=== PATIENT | male | born 1990 | race Caucasian/White ===

== ENCOUNTER 2017-12-08 14:50 | Emergency (ER) | payer OTHER, SELFPAY ==
[2017-12-08 14:52] VITALS: BP 164/94; PULSE 79; RESP 20; TEMP 36.7; O2SAT 97; BMI 47.1
--- NOTE | 2017-12-08 15:12 | ED.DCSUM_ITS ---
- ER Visit Summary Date of Service: 12/08/17 Chief Complaint: Back pain History of Present Illness: The patient is a 27 M presents to the emergency department with sudden onset back pain. 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 He states that once a year, he will get a flare up of pain. He states that he was at work bent over. He states he stood up, and felt something pop in his low back. He describing pain that is burning across his low back. It does not radiate down his legs. He denies any weakness , numbness, tingling. He said no problems of bowel or bladder. He states it was sudden onset. He denies any fevers or chills. He has no history of IV drug abuse. He is still able to ambulate. He has not taken anything for his pain. Physical Examination: Afebrile, vitals unremarkable. Well-appearing male no acute distress. Head is normocephalic, atraumatic. Pupil's equal round reactive, extraocular muscles intact. Neck supple. Heart regular rate and rhythm. Lungs clear, chest nontender. Abdomen soft, nontender, nondistended. No pulsatile mass. Patient has paraspinal tenderness in the lumbar area, but no bony tenderness. Straight leg raise is negative bilaterally. 2+ symmetric lower extremity pulses. 2+ reflexes. No clonus. No weakness of dorsiflexion, plantar flexion, or extensor hallucis longus bilaterally. Test Results: [] Emergency Department Course and Treatment: The patient has no red flag symptoms. He has normal pulses and reflexes of his lower extremities. He does have some bilateral paraspinal tenderness. I did obtain plain films which are unremarkable. The patient is able to ambulate. I will treat him as if this is musculoskeletal. He will be given anti-inflammatories and antispasmodics. He will also be referred to primary care as he does not have one. The patient is comfortable with this plan of care will be discharged home. Treatment Plan: [] Disposition: Discharge Impression: Acute lumbosacral strain This note was generated with Ovuline dictation software. It may contain incorrect words, spelling, and punctuation that were not noted in review of the chart prior to signing ED Disposition - Plan for ED Patient: Chief Complaint: Back Instructions: ED Low Back Pain Injury Prescriptions: Naproxen [Naprosyn] 500 mg PO BID PRN #20 tab Cyclobenzaprine [Flexeril] 10 mg PO TID PRN #20 tab PRN Reason: Muscle Spasm Referrals: Yoseph Khan MD [STAFF PHYSICIAN] -
[2017-12-08] MEDS: HYDROcodone Bitartrate/Apap 5/325 Tablet PO (16:07)
[2017-12-08 16:08] VITALS: BP 130/69; PULSE 77; RESP 18; O2SAT 98
== END 2017-12-08 16:09 | disposition home or self-care (01) ==
LOC: ED 15:44
PROVIDERS: Emergency Provider Emergency Medicine; Family Provider Family Medicine
DX: S39.012A Strain of muscle, fascia and tendon of lower back, initial encounter (principal); X50.1XXA Overexertion from prolonged static or awkward postures, initial encounter; Y93.9 Activity, unspecified; Y92.89 Other specified places as the place of occurrence of the external cause; Y99.0 Civilian activity done for income or pay
CPT/HCPCS: 72100; 99283

== ENCOUNTER 2018-03-12 21:24 | Emergency (ER) | payer SELFPAY ==
[2018-03-12 21:26] VITALS: BP 166/119; PULSE 93; RESP 18; TEMP 36.2; O2SAT 99; BMI 47.9
--- NOTE | 2018-03-12 21:44 | ED.VISSUMM ---
- ER Visit Summary Date of Service: 03/12/18 Chief Complaint: Left knee pain History of Present Illness: The patient is a 28 M who states he was running across a parking lot at work today. His left knee twisted and gave out. The patient nearly fell. He can complains of continued pain to the medial portion of his left knee. He has been able to walk with antalgic gait. Physical Examination: Blood pressure is 166/119, otherwise vitals normal. Patient is sitting upright in bed no acute distress. Head neck examination normal. Heart is regular rate and rhythm. Lung sounds clear. Lower extremity examination reveals mild tenderness along the medial joint line of the left knee. He has full range of motion with good strength and sensation. Ligaments are tight on testing. He has strong distal pulses with no evidence of effusion. Test Results: Left knee x-rays are unremarkable. Emergency Department Course and Treatment: Test results are discussed with the patient. I did advise him that we cannot evaluate the ligaments, tendons, cartilage, or meniscus with the x-rays. He voices understanding. He will be given an Kenrick wrap and a prescription for naproxen. He will be referred to orthopedics if not improving. Treatment Plan: [] Disposition: Discharge Impression: Left knee sprain This note was generated with Maclear dictation software. It may contain incorrect words, spelling, and punctuation that were not noted in review of the chart prior to signing ED Disposition - Plan for ED Patient: Chief Complaint: Lower Extremity Injury Referrals: [facility] Doctor,Out of [Primary Care Provider] -
--- NOTE | 2018-03-12 21:57 | RAD_ITS ---
STUDY: X-RAY - LEFT KNEE REASON FOR EXAM: Male, 28 years old. Pain TECHNIQUE: 4 view(s) of the knee. COMPARISON: None. FINDINGS: Normal visualized distal femur. Normal visualized proximal tibia and fibula. Normal proximal tibiofibular articulation. Normal medial femorotibial compartment. Normal lateral femorotibial compartment. Normal patellofemoral articulation. The soft tissue structures are unremarkable. RAD/Knee 4 or More Views IMPRESSION: Normal x-ray examination of the knee. Electronically Signed: Ortega Bowen DO at 22:43 EST Tel [phone], Service support ,
--- NOTE | 2018-03-12 22:53 | ED.DEP ---
ED Disposition - Plan for ED Patient: Disposition: Home or Assisted Living Chief Complaint: Lower Extremity Injury Instructions: ED Sprain Knee Prescriptions: Naproxen [Naprosyn] 500 mg PO BID PRN PRN #20 tablet PRN Reason: Pain Referrals: Finn Morin MD [STAFF PHYSICIAN] - 10-14 Days if not better
[2018-03-12] MEDS: Naproxen 500 MG Tablet PO (23:18)
[2018-03-12 23:19] VITALS: BP 166/95; PULSE 81; RESP 17; O2SAT 98
--- OUTSIDE RECORDS SUMMARY | 2018-04-24 17:32 | XMS RPT_ITS ---
:1990 Author Organization [facility] Care Team Providers Name Role Phone All Armas Attending Unavailable Shaw Padron Primary Care Unavailable Shaw Padron Primary Care Unavailable Oumou Turner Attending Unavailable PROBLEMS PROBLEMS No Problem Records FoundPROCEDURES PROCEDURES No Procedure Records FoundRESULTS RESULTS EMERGENCY DEPARTMENT Observed: 03/13/2018 Status: F Source: [place] 12:27 AM [facility] [place] [facility] Medical Records Department [address] [place] [address] Emergency Department Summary 03/12/18 2144 MR#: [id number] Acct: [id number] Name: ZAN BROWER Rep #: [id number] : 1990 28 From: Oumou Turner MD PCP: OUT OF TOWN DOCTOR Status: DEP ER - ER Visit Summary Date of Service: 03/12/18 Chief Complaint: Left knee pain History of Present Illness: The patient is a 28 M who states he was running across a parking lot at work today. His left knee twisted and gave out. The patient nearly fell. He can complains of continued pain to the medial portion of his left knee. He has been able to walk with antalgic gait. Physical Examination: Blood pressure is 166/119, otherwise vitals normal. Patient is sitting upright in bed no acute distress. Head neck examination normal. Heart is regular rate and rhythm. Lung sounds clear. Lower extremity examination reveals mild tenderness along the medial joint line of the left knee. He has full range of motion with good strength and sensation. Ligaments are tight on testing. He has strong distal pulses with no evidence of effusion. Test Results: Left knee x-rays are unremarkable. Emergency Department Course and Treatment: Test results are discussed with the patient. I did advise him that we cannot evaluate the ligaments, tendons, cartilage, or meniscus with the x-rays. He voices understanding. He will be given an Kenrick wrap and a prescription for naproxen. He will be referred to orthopedics if not improving. Treatment Plan: [] Disposition: Discharge Impression: Left knee sprain This note was generated with S[employer] Roundtable dictation software. It may contain incorrect words, spelling, and punctuation that were not noted in review of the chart prior to signing ED Disposition - Plan for ED Patient: Chief Complaint: Lower Extremity Injury Referrals: [facility] Doctor,Out of [Primary Care Provider] - What to do if you have Problems For any increased pain, shortness of breath, bleeding, nausea or vomiting, chest pain, or any unexpected problems, contact your Primary Care Provider. Call [facility] ([phone]) or report to the closest Emergency Room. Call 911 if necessary. 03/13/18 0027 <Electronically signed by Oumou Turner MD> Date Oumou Turner MD Cosigner Signature (If Indicated): Date CC: OUT OF TOWN DOCTOR; Shaw Padron MD DISCHARGE INSTRUCTION Observed: 03/12/2018 Status: F Source: [place] 10:54 PM [facility] [place] [facility] Medical Records Department [address] [place] [address] Discharge Instruction 03/12/18 2253 MR#: [id number] Acct: [id number] Name: ZAN BROWER Rep #: [id number] : 1990 28 From: Oumou Turner MD PCP: OUT OF TOWN DOCTOR Status: REG ER ED Disposition - Plan for ED Patient: Disposition: Home or Assisted Living Chief Complaint: Lower Extremity Injury Instructions: ED Sprain Knee Prescriptions: Naproxen [Naprosyn] 500 mg PO BID PRN PRN #20 tablet PRN Reason: Pain Referrals: Finn Morin MD [STAFF PHYSICIAN] - 10-14 Days if not better What to do if you have Problems For any increased pain, shortness of breath, bleeding, nausea or vomiting, chest pain, or any unexpected problems, contact your Primary Care Provider. Call [facility] ([phone]) or report to the closest Emergency Room. Call 911 if necessary. 03/12/18 8794 <Electronically signed by Oumou Turner MD> Date Oumou Turner MD Cosigner Signature (If Indicated): Date CC: OUT OF TOWN DOCTOR; Shaw Padron MD KNEE 4 OR MORE Observed: 03/12/2018 Status: F Source: [facility] 9:42 PM [facility] [place] [facility] Imaging Services [address] [place] [id number] Knee 4 or More Views MR#: [id number] Acct: [id number] Name: ZAN BROWER Rep #: [id number] : 1990 M 28 From: Ortega Bowen DO PCP: OUT OF TOWN DOCTOR Status: REG ER Study: Knee 4 or More Views Date of Exam: 03/12/18 Exam# [id number] Ordering Dr: Oumou Turner MD STUDY: X-RAY - LEFT KNEE REASON FOR EXAM: Male, 28 years old. Pain TECHNIQUE: 4 view(s) of the knee. COMPARISON: None. FINDINGS: Normal visualized distal femur. Normal visualized proximal tibia and fibula. Normal proximal tibiofibular articulation. Normal medial femorotibial compartment. Normal lateral femorotibial compartment. Normal patellofemoral articulation. The soft tissue structures are unremarkable. RAD/Knee 4 or More Views IMPRESSION: Normal x-ray examination of the knee. Electronically Signed: Ortega Bowen DO at 22:43 EST Tel [phone], Service support , CC: Oumou Turner MD; OUT OF TOWN DOCTOR Design Eng: Signed EMERGENCY DEPARTMENT Observed: 12/08/2017 Status: F Source: [place] SUMMARY 5:21 PM [facility] [place] [facility] Medical Records Department [address] [facility] [address] [place] [address] Emergency Department Summary 12/08/17 1511 MR#: [id number] Acct: [id number] Name: ZAN BROWER Rep #: [id number] : 1990 27 From: All Armas MD PCP: OUT OF TOWN DOCTOR Status: DEP ER - ER Visit Summary Date of Service: 12/08/17 Chief Complaint: Back pain History of Present Illness: The patient is a 27 M presents to the emergency department with sudden onset back pain. 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 He states that once a year, he will get a flare up of pain. He states that he was at work bent over. He states he stood up, and felt something pop in his low back. He describing pain that is burning across his low back. It does not radiate down his legs. He denies any weakness, numbness, tingling. He said no problems of bowel or bladder. He states it was sudden onset. He denies any fevers or chills. He has no history of IV drug abuse. He is still able to ambulate. He has not taken anything for his pain. Physical Examination: Afebrile, vitals unremarkable. Well- appearing male no acute distress. Head is normocephalic, atraumatic. Pupil's equal round reactive, extraocular muscles intact. Neck supple. Heart regular rate and rhythm. Lungs clear, chest nontender. Abdomen soft, nontender, nondistended. No pulsatile mass. Patient has paraspinal tenderness in the lumbar area, but no bony tenderness. Straight leg raise is negative bilaterally. 2+ symmetric lower extremity pulses. 2+ reflexes. No clonus. No weakness of dorsiflexion, plantar flexion, or extensor hallucis longus bilaterally. Test Results: [] Emergency Department Course and Treatment: The patient has no red flag symptoms. He has normal pulses and reflexes of his lower extremities. He does have some bilateral paraspinal tenderness. I did obtain plain films which are unremarkable. The patient is able to ambulate. I will treat him as if this is musculoskeletal. He will be given anti-inflammatories and antispasmodics. He will also be referred to primary care as he does not have one. The patient is comfortable with this plan of care will be discharged home. Treatment Plan: [] Disposition: Discharge Impression: Acute lumbosacral strain This note was generated with [employer] Roundtable dictation software. It may contain incorrect words, spelling, and punctuation that were not noted in review of the chart prior to signing ED Disposition - Plan for ED Patient: Chief Complaint: Back Instructions: ED Low Back Pain Injury Prescriptions: Naproxen [Naprosyn] 500 mg PO BID PRN #20 tab Cyclobenzaprine [Flexeril] 10 mg PO TID PRN #20 tab PRN Reason: Muscle Spasm Referrals: Yoseph Khan MD [STAFF PHYSICIAN] - What to do if you have Problems For any increased pain, shortness of breath, bleeding, nausea or vomiting, chest pain, or any unexpected problems, contact your Primary Care Provider. Call [employer] [facility] ([phone]) or report to the closest Emergency Room. Call 911 if necessary. 12/08/17 1721 <Electronically signed by All Armas MD> Date All Armas MD Cosigner Signature (If Indicated): Date CC: OUT OF TOWN DOCTOR; Shaw Padron MD LUMBAR SPINE 2 OR 3 Observed: 12/08/2017 Status: F Source: [place] VIEWS 3:00 PM [facility] [place] [facility] Imaging Services [address] [place] [address] Lumbar Spine 2 or 3 Views MR#: [id number] Acct: [id number] Name: ZAN BROWER Rep #: [id number] : 1990 M 27 From: David Rea MD PCP: OUT OF TOWN DOCTOR Status: REG ER Study: Lumbar Spine 2 or 3 Views Date of Exam: 12/08/17 Exam# [id number] Ordering Dr: All Armas MD STUDY: X-RAY - LUMBAR SPINE REASON FOR EXAM: Male, 27 years old. Sudden back pain. TECHNIQUE: 3 view(s) of the lumbar spine were obtained. COMPARISON: None FINDINGS: Normal lumbar lordosis. There is no substantial scoliosis. There is a normal alignment of the vertebrae. Normal vertebral bodies and endplates. Normal disc space heights. The soft tissue structures are unremarkable. RAD/Lumbar Spine 2 or 3 Views IMPRESSION: Normal x-ray examination of the lumbar spine. Electronically Signed: David Rea MD at 15:44 EDT Tel [phone], Service support , CC: All Armas MD; OUT OF [facility] DOCTOR Design Eng: Signed ED NOTE Observed: 09/08/2017 Status: COMPLETED Source: [place] 3:31 PM [facility] REPOSITORY O ID: [id number] Author: Katiana (Rn) Lara RN Service: Emergency Medicine Author Type: Registered Nurse Type: ED Notes Filed: 09/08/2017 3:34 PM Note Text: Patient informed: the name of medication, why we are giving it, possible side effects, what they may expect to feel, and was offered a chance to ask questions, prior to the administration of Penicillin. ED NOTE Observed: 09/08/2017 Status: COMPLETED Source: [place] 3:30 PM [facility] REPOSITORY HNO ID: [id number] Author: Katiana (Rn) GRACY Bermudez Service: Emergency Medicine Author Type: Registered Nurse Type: ED Notes Filed: 09/08/2017 3:30 PM Note Text: Patient c/o sore throat and trouble breathing for 2-3 days. Patient alert and oriented, ambulates to room 11 without difficulties. ED PROV NOTE Observed: 09/08/2017 Status: COMPLETED Source: [place] 3:22 PM [facility] REPOSITORY HNO ID: [id number] Author: José Miguel Baez DO Service: Emergency Medicine Author Type: Physician Type: ED Provider Notes Filed: 09/08/2017 3:27 PM Note Text: ED Provider Note Patient Name: Zan Brower SERVICE DATE: 09/08/17 History Patient presents with: Sore Throat 27 year old male c/o sore throat and discomfort with swallowing. Denies trouble swallowing fluids. Denies CP or SOB. Does report 3- 4 loose stools per day starting 1-2 days ago. No other complaints. PAST MEDICAL HISTORY Diagnosis Date - Renal disorder PAST SURGICAL HISTORY Procedure Laterality Date - HERNIA REPAIR HX No family history on file. Social History Social History Main Topics - Smoking status: Never Smoker - Smokeless tobacco: Current User - Alcohol use Yes Comment: [facility] - Drug use: No - Sexual activity: Not on file ALLERGIES No Known Allergies Review of Systems Constitutional: Negative. Negative for activity change and appetite change. HENT: Positive for sore throat. Negative for drooling, ear pain, mouth sores, nosebleeds, trouble swallowing and voice change. Eyes: Negative. Respiratory: Negative. Cardiovascular: Negative. Gastrointestinal: Negative. Musculoskeletal: Negative. Psychiatric/Behavioral: Negative. All other systems reviewed and are negative. Physical Exam BP 143/75 Pulse 107 Temp (Src) 101 (Temporal Artery) Resp 17 Ht 5' 10 (1.78m) Wt 315 lb (142.9kg) SpO2 96% BMI 45.20 kg/(m2). Physical Exam Constitutional: He is oriented to person, place, and time. He appears well-developed and well-nourished. HENT: Head: Normocephalic and atraumatic. Nose: Nose normal. Mouth/Throat: Oropharyngeal exudate present. Positive anterior cervical lymphadenopathy. Eyes: EOM are normal. Pupils are equal, round, and reactive to light. Neck: Normal range of motion. Cardiovascular: Normal rate, regular rhythm and normal heart sounds. Pulmonary/Chest: Effort normal and breath sounds normal. Abdominal: Soft. Bowel sounds are normal. Musculoskeletal: Normal range of motion. Lymphadenopathy: He has cervical adenopathy. Neurological: He is alert and oriented to person, place, and time. Skin: Skin is warm and dry. Diagnostic Testing ED Labs Ordered and Reviewed - No data to display Procedures Medical Decision Making MDM Pt given 1.2 Million units of Bicillin IM in ED to treat presumptively for strep pharyngitis. Pt instructed to follow up with PCP. ED Course / Clinical Impression Clinical Impressions as of Sep 08 1521 Acute pharyngitis, unspecified etiology Plan The patient was DISCHARGED: Counseled patient regarding suspected diagnosis AND need for follow-up. Discharged home with verbal and written instructions. They were instructed to return as needed for persistent or worsening symptoms or any new concerns. Condition at time of disposition: stable SIGNATURE: DO José Miguel Chin DO 09/08/17 1527 ALLERGIES ALLERGIES DATE TYPE / CODE NAME / CODE REACTION SEVERITY SOURCE 03/12/2018 Drug No Known Unknown [facility] Allergy/4160 Allergies/F00 [facility] 88124(SNOMED [id number](RXNOR Repository CT) M) ENCOUNTERS ENCOUNTERS ADMIT/DISCHARGE ACCOUNT ADMITTING ENCOUNTER LOCATION SOURCE NUMBER CLASS 03/12/2018/ [id number] Emergency [address] ing:ED Repository 12/08/2017/ [id number] Emergency [address] ing:ED Repository PAYERS PAYERS ENCOUNTER GUARANTOR PAYER SUBSCRIBER SOURCE 03/12/2018 [facility] NOT GIVENUNK [place] [id number] Insurance:SELF PAY [address] Number: Effective Repository [phone]: 440) Date:2018-03-12 [phone] () 12/08/2017 Z[facility] ZAN [place] [id number] Insurance:YOUNG VASQUEZ: [facility] Number: [id number] [address] [id number] Repository [id number]: [phone]) Date:[phone] () [address] [place] [phone]: 12/08/2017 Secondary NOT GIVENUNK [facility] Insurance:SELF PAY [facility] Number: Effective Repository Date:2017-12-08
== END 2018-03-12 23:20 | disposition home or self-care (01) ==
PROVIDERS: Emergency Provider Emergency Medicine; Family Provider Family Medicine
DX: S83.92XA Sprain of unspecified site of left knee, initial encounter (principal); X50.1XXA Overexertion from prolonged static or awkward postures, initial encounter; Y93.02 Activity, running; Y92.481 Parking lot as the place of occurrence of the external cause; Y99.9 Unspecified external cause status
CPT/HCPCS: 73564; 99284